=== PATIENT | male | born 1960 | race Caucasian/White ===

== ENCOUNTER 2017-10-30 18:19 | Emergency (ER) | payer OTHER ==
--- NOTE | 2017-10-30 18:26 | PDOC ---
History of Present Illness - General Stated Complaint: BACK PAIN Time Seen by Provider: 10/30/17 18:26 History Source: Patient Exam Limitations: No Limitations - History of Present Illness Initial Comments: Pt, with PMH of HTN, HLD, DM, and CAD (6 stents and carotid stenosis), presents to the ER via EMS for low back pain. Pt states he was stepping off the last stair at work onto his R foot, and immediately felt a "shooting" pain in his lower spine. He has also noticed "warmth and numbness" over his R anterior- lateral thigh. He denies any loss of bowel or bladder incontinence, or loss of strength in his legs. He noticed the numbness decreased when he lifted his R leg onto the stair and when he flexes his hip. The pain in his back is absent when he lies still or stands, and is exacerbated with twisting motions. He called EMS to bring him to the ER immediately after the incident, and no interventions were given. 10/30/17 20:15 10/30/17 23:17 Past History - Travel Traveled outside of the country in the last 30 days: No Close contact w/someone who was outside of country & ill: No - Past Medical History Allergies/Adverse Reactions: Allergies Allergy/AdvReac Type Severity Reaction Status Date / Time No Known Allergies Allergy Verified 10/30/17 18:35 Home Medications: Ambulatory Orders Aspirin [ASA -] 81 mg PO DAILY 10/30/17 Atorvastatin Ca [Lipitor] 80 mg PO HS 10/30/17 Clopidogrel Bisulfate [Plavix] 75 mg PO DAILY 10/30/17 Empagliflozin/Linagliptin [Glyxambi 10 mg-5 mg Tablet] 1 each PO DAILY 10/30/17 Evolocumab [Repatha Syringe] 140 mg SQ ASDIR 10/30/17 Insulin Aspart [Novolog] 0 unit SQ TID PRN 10/30/17 Lidocaine 5% Patch [Lidoderm -] 1 patch TP DAILY #14 patch 10/30/17 Losartan Potassium 100 mg PO DAILY 10/30/17 Methocarbamol [Robaxin -] 500 mg PO BID #14 tablet 10/30/17 Nebivolol [Bystolic -] 5 mg PO DAILY 10/30/17 Review of Systems - Review of Systems Able to Perform ROS?: Yes Is the patient limited Kazakh proficient: No Constitutional: Yes: Weight Stable. No: Chills, Diaphoresis, Fever, Loss of Appetite, Weakness HEENTM: Yes: Hearing Loss (hearing loss in L ear after infection last year). No : Blurred Vision, Recent change in vision, Throat Swelling Respiratory: No: Cough, Orthopnea, Shortness of Breath Cardiac (ROS): No: Chest Pain, Edema, Irregular Heart Rate, Lightheadedness, Palpitations, Syncope, Chest Tightness ABD/GI: No: Abdominal Distended, Constipated, Diarrhea, Nausea, Poor Appetite, Poor Fluid Intake, Vomiting : No: Burning, Dysuria, Frequency, Hematuria, Pain Musculoskeletal: Yes: Back Pain. No: Joint Pain, Joint Swelling, Muscle Pain, Muscle Weakness, Neck Pain, Joint Stiffness Integumentary: No: Bruising, Erythema, Lumps, Rash, Sweating Neurological: Yes: Numbness, Paresthesia (numbness over R anterior-lateral thigh ). No: Headache, Pre-Existing Deficit, Seizure, Tingling, Weakness, Unsteady Gait, Ataxia, Dizziness Psychiatric: No: Sleep Pattern Change, Change in Appetite Endocrine: No: Increased Urine, Change in Weight Hematologic/Lymphatic: No: Anemia, Blood Clots, Easy Bleeding All Other Systems: Reviewed and Negative *Physical Exam - Physical Exam General Appearance: Yes: Nourished, Appropriately Dressed, Mild Distress (Pt in pain with movement. Vitals stable.), Obese HEENT: positive: EOMI, PRESTON, Normal ENT Inspection, Normal Voice, Pharynx Normal , Hearing Decreased (Hearing decreased in L ear). negative: Scleral Icterus (R) , Scleral Icterus (L), Pharyngeal Erythema, Tonsillar Exudate, Tonsillar Erythema, Rhinorrhea Neck: positive: Trachea midline, Normal Thyroid, Supple. negative: Tender, Rigid, Decreased range of motion, Lymphadenopathy (R), Lymphadenopathy (L), Rigidity Respiratory/Chest: positive: Lungs Clear, Normal Breath Sounds. negative: Chest Tender, Respiratory Distress, Accessory Muscle Use, Crackles, Stridor, Wheezing Cardiovascular: positive: Regular Rhythm, Regular Rate, S1, S2. negative: Edema , JVD, Murmur Vascular Pulses: Dorsalis-Pedis (R): 4+, Doralis-Pedis (L): 4+ Gastrointestinal/Abdominal: positive: Normal Bowel Sounds, Flat, Soft. negative : Tender, Organomegaly, Pulsatile Mass, Distended, Guarding, Rebound Rectal Exam: positive: deferred Lymphatic: negative: Adenopathy, Tenderness Musculoskeletal: positive: Vertebral Tenderness (mild tenderness to palpation over coccyx). negative: Normal Inspection, CVA Tenderness, Decreased Range of Motion (decreased AROM of R hip due to pain in back. PROM of all extremities intact. ), Muscle Spasm Extremity: positive: Normal Capillary Refill, Normal Inspection, Normal Range of Motion, Pelvis Stable. negative: Tender, Coldness, Cyanosis, Delayed Capillary Refill, Pedal Edema, Swelling, Calf Tenderness Integumentary: positive: Normal Color, Dry, Warm. 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 negative: EOM Palsy, Facial Droop, Depressed Affect ED Treatment Course - LABORATORY CBC & Chemistry Diagram: 10/30/17 19:35 10/30/17 19:35 Medical Decision Making - Medical Decision Making Pt seen at bedside, also will be seen by Dr. Rivas. Pt presents with "shooting pain" in his midline lumbar back (~L4-L5) after stepped off a last stair. Pt also has decreased sensation to light touch over his anterior-lateral thigh. No muscular weakness, no incontinence of bowel or bladder. Ordered basic labs and CT lumbar spine w/o contrast. Provided 1 g IV ofirmev. 10/30/17 18:[address] scan. Pending results. Type & Screen hemolyzed. Will re-draw if necessary. CBC and coags WNL. 10/30/17 20:[address] results. Pt lying comfortably, has been moved to holding. 10/30/17 21:02 [id number] CT/LUMBAR SPINE CT W/O CONTRAST Lumbar spine CT (without contrast) Clinical information given: sacral tenderness; evaluate for compression/ herniation; numbness over anterior thigh Multiplanar imaging was performed. No intrathecal or intravenous contrast was administered. Submitted exam coverage extends from the level of the T11 inferior endplate through the S3 level of the sacrum. There is maintenance of the lumbar lordosis. Minimal to mild L1-L2 and L3-L4 degenerative disc space narrowing is seen. There is minimal L3-L4 degenerative retrolisthesis. Discogenic vertebral endplate sclerosis is noted along the L2 superior endplate ventrally with associated mild spondylosis. Moderate to marked bilateral L4-L5 degenerative facet arthropathy is seen. No definite disc herniation is identified. Mild to moderate degenerative disc bulging is visualized at levels L3-S1. No central or lateral canal stenosis is visualized. There is no CT evidence of fracture. The perivertebral soft tissues demonstrate no obvious pathology. Impression: No definite disc herniation or canal stenosis is seen. Degenerative disc and facet joint changes are noted as discussed above. Please note that the submitted exam coverage does not include the S4 / S5 levels of the sacrum or the coccyx. If clinically indicated supplemental CT evaluation may be performed. 10/30/17 22:22 (entered later). No disc herniation or stenosis was noted on lumbar CT. Pt was able to ambulate before leaving the department. His pain was improved after IV ofirmev. He denies any bladder or bowel incontinence since arrival. Provided referral to Dr. Chávez for orthopedic follow-up. Strict return precautions provided with pt understanding. Sent lidocaine patches and robaxin (500 mg BID) to pharmacy for pt. 10/30/17 23:13 *DC/Admit/Observation/Transfer Diagnosis at time of Disposition: Sacral back pain - Discharge Dispostion Disposition: HOME Condition at time of disposition: Stable Decision to Admit order: No - Prescriptions Prescriptions: Lidocaine 5% Patch [Lidoderm -] 1 patch TP DAILY #14 patch Methocarbamol [Robaxin -] 500 mg PO BID #14 tablet - Referrals Referrals: Hayden Quesada [Primary Care Provider] - Tico Chávez MD [Staff Physician] - - Patient Instructions Printed Discharge Instructions: DI for Lumbar Radiculopathy Additional Instructions: You were seen in the ER today for pain in your back. Please follow-up with your primary care doctor and the orthopedics doctor. I have also sent medications to your pharmacy for back spasm (Robaxin twice per day, 500 mg) and lidocaine patches (apply twice per day, making sure to remove the old patch). Please return to the ER if you have loss of bowel or bladder control, loss of sensation throughout your legs or back, loss of strength in your legs or back, or any other concerns. - Post Discharge Activity
[2017-10-30 18:53] VITALS: BMI 35.5
--- NOTE | 2017-10-30 18:58 | PDOC ---
Attending Attestation - Resident Resident Name: NemesioEster - ED Attending Attestation I have performed the following: I have examined & evaluated the patient, The case was reviewed & discussed with the resident, I agree w/resident's findings & plan, Exceptions are as noted - HPI HPI: 10/30/17 19:29 This is a 57 yo M with a h/o DM, HTN, CAD s/p CABG Pt presents to the Er with a complaint of severe back pain Pt was in his usual state of health this morning While at work today, he was going down stairs As he did so, he came down on his right leg very heavily which caused him to have immediate and severe back pain He has pain when he moves or turns No bowel or bladder incontinence Sensory deficit to the right thigh - Physicial Exam PE: 10/30/17 19:37 On examination: Pt is awake and alert Answers all questions appropriately RRR CTA No abd tenderness Pt is able to: Flex and the hip and the knee Pt is able to dorsi and plantar flex at the ankle EHL intact Sensation in tact in the feel ? decreased sensation right anterior and lateral thigh Pt ambulatory to the bathroom - Medical Decision Making 10/30/17 19:42 57 yo M presenting to the ER for evaluation of severe back pain after going down stairs No high risk features - for fevers, no recent cancer, no IVDU Will do labs Will give IV pain meds Will do CT Will re assess 10/30/17 20:46 Laboratory Tests 10/30/17 10/30/17 10/30/17 19:35 19:35 19:35 WBC 7.9 Hgb 15.8 Hct 47.2 Plt Count 157 INR 1.04 BUN 21 H Creatinine 0.8 10/30/17 20:46 CT read pending 10/30/17 22:26 EKG: SR rate of 67 bpm, axis nml, intervals abnormal - pr: 210ms prolonged, QRS : 102ms, QTc: 488ms, t wave inversion v3-v6 (seen in prior EKG) CT not acute changes, degenerative changes Will discharge to home Pt to follow up with PMD/Ortho clinical impression: back pain, initial presentation
[2017-10-30] MEDS ORDERED: ACETAMINOPHEN 1000 MG/100 ML VIAL (NON FORMULARY) IVPB ONE (19:21)
[2017-10-30 19:44] LABS: BASO % 0.5 % (0-2.0); EOS % 1.2 % (0-4.5); HEMATOCRIT 47.2 % (35.4-49); HEMOGLOBIN 15.8 GM/dL (11.7-16.9); LYMPH % 30.7 % (8-40); MCH 29.8 pg (25.7-33.7); MCHC 33.5 g/dl (32.0-35.9); MEAN CELL VOLUME 89.2 fl (80-96); MEAN PLT VOLUME 8.7 fl (7.5-11.1); MONO % 8.8 % (3.8-10.2); NEUT % 58.8 % (42.8-82.8); PLATELET COUNT 157 K/MM3 (134-434); RDW 13.8 % (11.9-15.9); WHITE BLOOD COUNT 7.9 K/mm3 (4.0-10.0)
[2017-10-30 19:56] LABS: INR 1.04 (0.83-1.09); PROTHROMBIN TIME (PATIENT) 11.7 SEC (9.7-13.0)
[2017-10-30 19:58] LABS: ACTIVATED PTT 34.2 SECONDS (25.2-36.5)
[2017-10-30] MEDS ORDERED: ACETAMINOPHEN INJECTION 100 ML IVPB ONE (20:15)
[2017-10-30 20:19] LABS: ALBUMIN 4.2 g/dl (3.4-5.0); ALK PHOS 70 U/L (45-117); ANION GAP 9 MMOL/L (8-16); BILIRUBIN,TOTAL 0.6 mg/dL (0.2-1.0); BLOOD UREA NITROGEN 21 mg/dL (7-18); CALCIUM 8.8 mg/dL (8.5-10.1); CHLORIDE 110 mmol/L (98-107); CO2 25 mmol/L (21-32); CREATININE 0.8 mg/dL (0.7-1.3); GLUCOSE,RANDOM 93 mg/dL (74-106); SGOT/AST 14 U/L (15-37); SGPT/ALT 29 U/L (12-78); SODIUM 144 mmol/L (136-145)
[2017-10-30 22:24] VITALS: BP 132/73; PULSE 78; TEMP 98.2
== END 2017-10-30 22:20 | disposition home or self-care (01) ==
LOC: JER 18:19
PROC: 3E033NZ Introduction of Analgesics, Hypnotics, Sedatives into Peripheral Vein, Percutaneous Approach (ICD-10-PCS; principal; 2017-10-30)
DX: M53.3 Sacrococcygeal disorders, not elsewhere classified (principal); X50.0XXA Overexertion from strenuous movement or load, initial encounter; Y93.89 Activity, other specified; Y92.69 Other specified industrial and construction area as the place of occurrence of the external cause; Y99.0 Civilian activity done for income or pay; I25.10 Atherosclerotic heart disease of native coronary artery without angina pectoris; Z95.1 Presence of aortocoronary bypass graft; Z95.5 Presence of coronary angioplasty implant and graft; I10 Essential (primary) hypertension; E11.9 Type 2 diabetes mellitus without complications; Z79.4 Long term (current) use of insulin; E78.5 Hyperlipidemia, unspecified; E78.00 Pure hypercholesterolemia, unspecified
CPT/HCPCS: 36415; 72131-TC; 80053; 85025; 85610; 85730; 99282-25; J0131